=== PATIENT | female | born 1995 | race Caucasian/White ===

== ENCOUNTER 2019-03-30 15:09 | Emergency (ER) | payer MEDICAID ==
--- NOTE | 2019-03-30 16:05 | EDM.PDOC ---
ED HPI GENERAL MEDICAL PROBLEM - General Chief Complaint: General Stated Complaint: 5 WKS AND DIZZY Time Seen by Provider: 03/30/19 15:46 Source of Information: Reports: Patient History Limitations: Reports: No Limitations - History of Present Illness INITIAL COMMENTS - FREE TEXT/NARRATIVE: 23 yo female presents with mild dizziness. She did see her PCP earlier this week with preg confirmation ~5 weeks. Generally feels well. was mildly nauseated yesterday without emesis. 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 Denies: Fever, Chills Respiratory: Denies: Shortness of Breath, Wheezing Cardiovascular: Denies: Chest Pain GI/Abdominal: Denies: Abdominal Pain ED EXAM, GENERAL - Physical Exam Exam: See Below Exam Limited By: No Limitations General Appearance: Alert, WD/WN, No Apparent Distress Head: Atraumatic, Normocephalic Neck: Normal Inspection, Supple, Non-Tender, Full Range of Motion. No: Lymphadenopathy (R), Lymphadenopathy (L) Respiratory/Chest: No Respiratory Distress, Lungs Clear, Normal Breath Sounds, No Accessory Muscle Use, Chest Non-Tender. No: Crackles, Rhonchi, Wheezing Cardiovascular: Regular Rate, Rhythm, No Murmur GI/Abdominal: Soft, Non-Tender Neurological: Alert, Oriented, CN II-XII Intact Psychiatric: Normal Affect, Normal Mood Skin Exam: Warm, Dry, Intact Course - Vital Signs Last Recorded V/S: Last Vital Signs Temp 36.8 C 03/30/19 15:30 Pulse 82 03/30/19 15:30 Resp 22 H 03/30/19 15:30 BP 135/66 03/30/19 15:30 Pulse Ox 95 03/30/19 15:30 - Orders/Labs/Meds Orders: Active Orders 24 hr Category Date Time Status CULTURE URINE [RM] Stat Lab 03/30/19 16:32 Ordered Labs: Laboratory Tests 03/30/19 Range/Units 15:51 Urine Color Yellow (YELLOW) Urine Appearance Clear (CLEAR) Urine pH 6.0 (5.0-8.0) Ur Specific [place] 1.010 (1.008-1.030) Urine Protein Negative (NEGATIVE) mg/dL Urine Glucose (UA) Negative (NEGATIVE) mg/dL Urine Ketones Negative (NEGATIVE) mg/dL Urine Occult Blood Negative (NEGATIVE) Urine Nitrite Negative (NEGATIVE) Urine Bilirubin Negative (NEGATIVE) Urine Urobilinogen 0.2 (0.2-1.0) EU/dL Ur Leukocyte Esterase Trace H (NEGATIVE) Urine RBC 0-5 (0-5) Urine WBC 5-10 H (0-5) Ur Epithelial Cells Few Amorphous Sediment Few Urine Bacteria Moderate Urine Mucus Not seen - Re-Assessments/Exams Free Text/Narrative Re-Assessment/Exam: 03/30/19 16:33 UA indicative of contamination so will not start antibiotics until confirmation of growth on culture. Departure - Departure Time of Disposition: 16:34 Disposition: Home, Self-Care 01 Condition: Good Clinical Impression: Dizziness - Discharge Information *PRESCRIPTION DRUG MONITORING PROGRAM REVIEWED*: Not Applicable *COPY OF PRESCRIPTION DRUG MONITORING REPORT IN PATIENT JOSÉ LUIS: Not Applicable Instructions: Dizziness, [id number] Referrals: Martha Ramos PA [Primary Care Provider] - Forms: ED Department Discharge Additional Instructions: increase fluid intake to 2 liters per day less simple carbohydrates and more protein in diet - My Orders Last 24 Hours: My Active Orders 03/30/19 16:32 CULTURE URINE [RM] Stat - Assessment/Plan Last 24 Hours: My Active Orders 03/30/19 16:32 CULTURE URINE [RM] Stat
== END 2019-03-30 16:46 | disposition home or self-care (01) ==
LOC: JP.ED 15:09
DX: O99.89 Other specified diseases and conditions complicating pregnancy, childbirth and the puerperium (principal); R42 Dizziness and giddiness; Z3A.01 Less than 8 weeks gestation of pregnancy
CPT/HCPCS: 81001; 87086; 99283

== ENCOUNTER 2019-05-18 08:08 | Emergency (ER) | payer MEDICAID ==
--- NOTE | 2019-05-18 08:34 | EDM.PDOC ---
ED HPI GENERAL MEDICAL PROBLEM - General Chief Complaint: ENT Problem Stated Complaint: EAR ACHE Time Seen by Provider: 05/18/19 08:26 Source of Information: Reports: Patient History Limitations: Reports: No Limitations - History of Present Illness INITIAL COMMENTS - FREE TEXT/NARRATIVE: pt arrived with a plugged rt ear and she has severe nasal stuffiness. The stuffiness has been going on for 2 weeks. She is 12 weeks . Onset: Gradual, Other ( Plugged rt ear started yesterday. ) Duration: Hour(s): Location: Reports: Head, Face Quality: Reports: Ache Severity: Mild Improves with: Reports: None Worsens with: Reports: None Associated Symptoms: Reports: Other (plugged rt ear and nasal stuffiness ) - Related Data Allergies Allergy/AdvReac Type Severity Reaction Status Date / Time No Known Allergies Allergy Verified 05/18/19 08:20 Home Meds: Home Meds Pnv No.95/Ferrous Fum/Folic AC [ Caplet] 1 tab PO DAILY 03/30/19 [ History] Past Medical History - Past Health History Medical/Surgical History: Denies Medical/Surgical History HEENT History: Reports: Impaired Vision Gastrointestinal History: Reports: None 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 MAGNETO 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 History: G-2 p-1 Neurological History: Reports: Migraines - Past Surgical History Head Surgeries/Procedures: Reports: None HEENT Surgical History: Reports: Adenoidectomy, Tonsillectomy GI Surgical History: Reports: Hernia, Abdominal Neurological Surgical History: Reports: None Dermatological Surgical History: Reports: None Social & Family History - Tobacco Use Smoking Status *Q: Never Smoker Second Hand Smoke Exposure: No - Caffeine Use Caffeine Use: Reports: Soda - Recreational Drug Use Recreational Drug Use: No ED ROS ENT - Review of Systems Review Of Systems: See Below Constitutional: Reports: No Symptoms HEENT: Reports: Sinus Problem (marked nasal stuffiness), Other ( rt ear is plugged) Cardiovascular: Reports: No Symptoms Endocrine: Reports: No Symptoms GI/Abdominal: Reports: No Symptoms : Reports: No Symptoms Musculoskeletal: Reports: No Symptoms Neurological: Reports: No Symptoms ED EXAM, ENT - Physical Exam Exam: See Below Text/Narrative:: pt arrived with a plugged rt ear. She has had nasal stuffiness for 2 weeks. She is 12 weeks . Exam Limited By: No Limitations General Appearance: Alert, Anxious, Mild Distress, Other (pupils equal and reactive. ) Ears: Other ( left ear has a small amount of fluid, rt drum has alot of fluid behund drum Both nares reveal alot of swelling in the mucous membranes, nearly swollen shut. ) Nose: Nasal Swelling, Injected Turbinates Mouth/Throat: Normal Inspection Head: Atraumatic Neck: Normal Inspection Respiratory/Chest: No Respiratory Distress Course - Vital Signs Last Recorded V/S: Last Vital Signs Temp 36.5 C 05/18/19 08:24 Pulse 75 05/18/19 08:24 Resp 16 05/18/19 08:24 BP 111/53 L 05/18/19 08:24 Pulse Ox 98 05/18/19 08:24 - Re-Assessments/Exams Free Text/Narrative Re-Assessment/Exam: 05/18/19 09:02 pt had marked nasal swelling ut because of the 12 week preg she is limited as to the meds that are safe. Departure - Departure Time of Disposition: 08:38 Disposition: Home, Self-Care 01 Condition: Fair Clinical Impression: Stuffy nose, Serous otitis media - Discharge Information Referrals: Martha Ramos PA [Primary Care Provider] - Forms: ED Department Discharge Care Plan Goals: cool mist humidifier, afrin nasal spray bid for the next 2-3 days. Use very conservatively because of the 12 week , amoxicillin 500mg tid for 10 days--serous lauro. Use monostat vag cream to prevent yeast infection. While on the antibiotic suggest using alot of yogurt
== END 2019-05-18 08:50 | disposition home or self-care (01) ==
LOC: JP.ED 08:08
DX: O99.89 Other specified diseases and conditions complicating pregnancy, childbirth and the puerperium (principal); H65.93 Unspecified nonsuppurative otitis media, bilateral; R09.81 Nasal congestion; Z3A.12 12 weeks gestation of pregnancy
CPT/HCPCS: 99283

== ENCOUNTER 2020-04-08 22:43 | Emergency (ER) | payer MEDICAID ==
[2020-04-08] MEDS ORDERED: Atropine/Hyoscyamine/PHENobarbital/Scopolamine Elixir 10 ML UD PO ONE (23:01)
--- NOTE | 2020-04-08 23:24 | EDM.PDOC ---
ED HPI GENERAL MEDICAL PROBLEM - General Chief Complaint: Abdominal Pain Stated Complaint: ABDOMINAL PAIN Time Seen by Provider: 04/08/20 23:00 Source of Information: Reports: Patient, Old Records, RN History Limitations: Reports: No Limitations - History of Present Illness INITIAL COMMENTS - FREE TEXT/NARRATIVE: 24 yo female was seen earlier today in the clinic for intermittent generalized abdominal pain for a few weeks. There has never been any definite constipation, diarrhea, fever, black or bloody stools or weight loss. She has recently received an Nexplanon contraceptive device and has been amenorrheic since. She does not notice any change in her sx's with what or how much she eats. [place] bothered her yesterday, [place] earlier today did not. She had a CBC, UA, and CMP in the clinic today that were completely normal. Her exam per clinic records was fairly unremarkable. She was advised to take ibuprofen and if she either didn't improve or developed a fever to return to the clinic. The ibuprofen she took did not help and she was concerned the pain would keep her awake tonight so she came to the ER tonight. Has never been dx with IBS. Onset: Unknown/Unsure Duration: Week(s):, Waxing/Waning Location: Reports: Abdomen, Generalized Quality: Reports: Other (crampy) Severity: Moderate Improves with: Reports: Other (uncertain) Worsens with: Reports: Other (uncertain) Context: Reports: Other (See HPI) Associated Symptoms: Reports: No Other Symptoms. 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 - Related Data Allergies Allergy/AdvReac Type Severity Reaction Status Date / Time No Known Allergies Allergy Verified 05/18/19 08:20 Home Meds: Home Meds Docusate Sodium [Colace] 100 mg PO BID 04/08/20 [History] Etonogestrel [Nexplanon] 68 mg IN ASDIRECTED 04/08/20 [History] Dicyclomine [Bentyl] 20 mg PO QIDACANDBED PRN #30 tab 04/09/20 [Rx] Past Medical History - Past Health History Medical/Surgical History: Denies Medical/Surgical History HEENT History: Reports: Impaired Vision Gastrointestinal History: Reports: None 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 AWAY 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 History: G-2 p-1 Neurological History: Reports: Migraines - Past Surgical History Head Surgeries/Procedures: Reports: None HEENT Surgical History: Reports: Adenoidectomy, Tonsillectomy GI Surgical History: Reports: Hernia, Abdominal Neurological Surgical History: Reports: None Dermatological Surgical History: Reports: None Social & Family History - Tobacco Use Tobacco Use Status *Q: Never Tobacco User - Caffeine Use Caffeine Use: Reports: Soda ED ROS GENERAL - Review of Systems Review Of Systems: See Below Constitutional: Reports: No Symptoms HEENT: Reports: No Symptoms Respiratory: Reports: No Symptoms Cardiovascular: Reports: No Symptoms Endocrine: Reports: No Symptoms GI/Abdominal: Reports: Abdominal Pain. Denies: Black Stool, Bloody Stool, Constipation, Diarrhea, Decreased Appetite, Distension, Flatus, Hematemesis, Hematochezia, Melena, Mucous in Stool, Nausea, Vomiting : Reports: No Symptoms Musculoskeletal: Reports: No Symptoms Skin: Reports: No Symptoms Neurological: Reports: No Symptoms Psychiatric: Reports: No Symptoms ED EXAM, GI/ABD - Physical Exam Exam: See Below Exam Limited By: No Limitations General Appearance: Alert, WD/WN, No Apparent Distress Eyes: Bilateral: Normal Appearance Ears: Normal External Exam, Normal Canal, Hearing Grossly Normal Nose: Normal Inspection, No Blood Throat/Mouth: Normal Inspection, Normal Lips, Normal Oropharynx, Normal Voice, No Airway Compromise Head: Atraumatic, Normocephalic Neck: Normal Inspection Respiratory/Chest: No Respiratory Distress, Lungs Clear, Normal Breath Sounds, No Accessory Muscle Use Cardiovascular: Regular Rate, Rhythm, No Edema GI/Abdominal Exam: Normal Bowel Sounds, Soft, No Distention, Tender (mild, diffuse). No: Non-Tender, Distended, Guarding, Rigid, Rebound Back Exam: Normal Inspection. No: CVA Tenderness (R), CVA Tenderness (L) Extremities: Normal Inspection, Normal Range of Motion, Non-Tender, No Pedal Edema Neurological: Alert, Oriented, CN II-XII Intact, Normal Cognition, No Motor/Sensory Deficits Psychiatric: Normal Affect, Normal Mood Skin Exam: Warm, Dry, Intact, Normal Color, No Rash Course - Vital Signs Last Recorded V/S: Last Vital Signs Temp 35.9 C L 04/08/20 22:58 Pulse 66 04/08/20 22:58 Resp 16 04/08/20 22:58 BP 117/65 04/08/20 22:58 Pulse Ox 97 04/08/20 22:58 - Orders/Labs/Meds Orders: Active Orders 24 hr Category Date Time Status Hemoccult [OCCULT BLOOD DIAGNOSTIC] [OP] Stat Lab 04/08/20 23:28 Ordered Meds: Medications Discontinued Medications Generic Name Dose Route Start Last Admin Trade Name Stefan PRN Reason Stop Dose Admin Belladonna/Phenobarbital 10 ml 04/08/20 23:01 04/08/20 23:10 Elixir PO 04/08/20 23:02 10 ml ONETIME ONE Administration - Re-Assessments/Exams Free Text/Narrative Re-Assessment/Exam: 04/09/20 00:17 Feeling better after Elixir Departure - Departure Time of Disposition: 00:19 Disposition: Home, Self-Care 01 Condition: Good Clinical Impression: IBS (irritable bowel syndrome) Qualifiers: Irritable bowel syndrome type: without diarrhea Qualified Code(s): K58.9 - Irritable bowel syndrome without diarrhea - Discharge Information *PRESCRIPTION DRUG MONITORING PROGRAM REVIEWED*: No *COPY OF PRESCRIPTION DRUG MONITORING REPORT IN PATIENT JOSÉ LUIS: No Instructions: Diet for Irritable Bowel Syndrome, Irritable Bowel Syndrome, Adult Referrals: Martha Ramos PA [Primary Care Provider] - Forms: ED Department Discharge Additional Instructions: Try Dicyclomine as directed. This a treatment for irritable bowel syndrome or IBS for short. A high fiber diet is generally recommended for this and often a fiber supplement is prescribed even if you are not constipated, consider a daily or twice daily dose of Metamucil or Citrucel. Recheck with your provider if this is not helping or to get refills. Sepsis Event Note (ED) - Evaluation Sepsis Screening Result: No Definite Risk - Focused Exam Vital Signs: Vital Signs Temp Pulse Resp BP Pulse Ox 04/08/20 22:58 35.9 C L 66 16 117/65 97 04/08/20 22:56 35.9 C L 66 16 117/65 97 - My Orders Last 24 Hours: My Active Orders 04/08/20 23:28 Hemoccult [OCCULT BLOOD DIAGNOSTIC] [OP] Stat - Assessment/Plan Last 24 Hours: My Active Orders 04/08/20 23:28 Hemoccult [OCCULT BLOOD DIAGNOSTIC] [OP] Stat
== END 2020-04-09 00:48 | disposition home or self-care (01) ==
LOC: JP.ED 22:43
DX: K58.9 Irritable bowel syndrome, unspecified (principal)
CPT/HCPCS: 82272; 99284; A9270

== ENCOUNTER 2025-06-11 12:03 | Emergency (ER) | payer MEDICAID | END 2025-06-11 14:30 | disposition home or self-care (01) | LOC: JP.ED 12:03 | DX: J10.1 Influenza due to other identified influenza virus with other respiratory manifestations (principal); Z79.899 Other long term (current) drug therapy | CPT/HCPCS: 87428-QW; 99283; 99284 ==